=== PATIENT | female | born 1990 | race Two or more races ===

== ENCOUNTER 2021-07-23 21:33 | Emergency (ER) | payer SELFPAY ==
[~2021-07-23] VITALS: Ht 154.9 cm; Wt 52.2 kg
[2021-07-23 23:08] LABS: Basophils # (auto) 0.1 10 ^3/uL (0-0.2); Basophils % (auto) 1.1 % (0.0-2.0); Eosinophils # (auto) 0.5 10 ^3/uL (0-0.8); Eosinophils % (auto) 6.5 % (0.0-7.0); Hematocrit 42.3 % (36.0-46.0); Hemoglobin 14.4 g/dL (12.2-16.2); Lymphocytes # (auto) 2.7 10 ^3/uL (0.4-5.4); Lymphocytes % (auto) 33.8 % (10.0-50.0); Mean Corpuscular Hgb Conc. 34.1 g/dL (32.0-36.0); Monocytes # (auto) 0.6 10 ^3/uL (0-1.3); Monocytes % (auto) 8.2 % (0.0-12.0); Neutrophils % (auto) 50.4 % (37.0-80.0); Red Blood Cells 4.97 10^6/uL (4.0-5.20); Red Cell Distribution Width 14.3 % (11.8-14.3); White Blood Cell 7.9 10^3/uL (4.4-10.8)
[2021-07-23 23:25] LABS: BUN/Creatinine Ratio 21.2; Calcium 8.9 mg/dL (8.5-10.1); Potassium 3.9 mmol/L (3.5-5.1)
[2021-07-23 23:28] LABS: Bilirubin, Total 0.3 mg/dL (0.2-1.0); Total Protein 7.7 g/dL (6.4-8.2)
[2021-07-24 04:25] VITALS: BP 124/69
[2021-07-24] MEDS ORDERED: DICY10CA PO (04:25)
== END 2021-07-24 04:48 | disposition home or self-care (01) ==
LOC: ER 21:33
DX: R10.13 Epigastric pain (principal)
CPT/HCPCS: 36415; 80053; 83690; 84702; 85025